=== PATIENT | female | born 1965 | race Two or more races ===

== ENCOUNTER → 2016-09-26 | Outpatient (CLI) | payer OTHER ==
[~2016-09-26] MED LIST: AMITRIPTYLINE H50 MG PO; ANTIVERT PO; LEVOTHYROXINE88 MCG PO; LIPITOR PO; MECLIZINE HCL12.5 MG PO; OMEPRAZOLE20 M2 PO; PHENERGAN25 MG PO; ZESTORETIC 10/11 TA1 PO
--- NOTE | ~2016-09-26 | MY11 ---
[facility] A Service of [facility] & [facility] RADIOLOGY TEXT RESULTS PATIENT: AIDEN MULLINS LOCATION: [facility] : 63 UNIT #: [id number] AGE: [address]: MARV CONTRERAS APRN SEX: F ORDER DR: [id number] [facility] [address] [place], [place] [address] [id number] O MR#: [id number] Acc #: [id number] NAME: AIDEN MULLINS : 1965 SEX: F STUDY DATE/TIME: 09/26/2016 11:15 UNIT: [facility] ROOM: STUDY DESCRIPTION: MY Mammogram Screening Dig Alexis Attending Physician: Addy Contreras M.D. Referring Physician: Addy Contreras M.D. Ordering Physician: Addy Contreras M.D. Primary Care Physician: Justin Martin M.D. MEDICAL IMAGING REPORT This report is preliminary unless electronic signature is present EXAM Bilateral digital screening mammogram with CAD 09/26/2016 INDICATIONS 51-year-old female for routine screening. No reported problems and no personal or family history of breast cancer. No surgeries. CC and MLO views of the breasts were obtained and reviewed with an FDA approved CAD device. COMPARISON STUDIES Comparison 05/06/2015, 02/05/2011 FINDINGS Breast parenchyma is composed of scattered fibroglandular densities. The pattern is unchanged. There is no new dominant nodule, mass or suspicious cluster of microcalcifications. Benign intramammary nodes in the right breast are stable. IMPRESSION Negative screening mammogram. 1 year followup recommended. BIRADS 1 Patients over the age of 40 are entered into a reminder system with target due date for the next mammogram. A result letter will also be sent to the patient. BIRADS: 1 - Negative Dictated by... Casey Cruz M.D. THIS IS AN ELECTRONICALLY VERIFIED REPORT Casey Cruz M.D. at 09/26/2016 4:53 PM [facility] A Service of [facility] & [facility] RADIOLOGY TEXT RESULTS PATIENT: AIDEN MULLINS LOCATION: [facility] : 63 UNIT #: [id number] AGE: [address]: MARV CONTRERAS APRN SEX: F ORDER DR: Bryan TD: 09/26/2016 15:19 JOB #: [id number] MEDICAL IMAGING REPORT COPY
== END | disposition home or self-care (01) ==
LOC: CWCC 10:59
DX: Z12.31 Encounter for screening mammogram for malignant neoplasm of breast (principal)
CPT/HCPCS: G0202